=== PATIENT | male | born 1960 | race African-American/Black ===

== ENCOUNTER 2018-11-17 09:14 | Day surgery (SDC) | payer MEDICAID ==
[2018-11-17] MEDS ORDERED: fentaNYL 0.05 MG/ML VIAL ONE (13:21)
[2018-11-17] MEDS ORDERED: LIDOCAINE 2% 100 MG/5 ML UJET TP ONE (13:21)
[2018-11-17] MEDS ORDERED: fentaNYL 0.05 MG/ML VIAL IVP ONE (13:40)
== END 2018-11-17 14:04 | disposition home or self-care (01) ==
LOC: MOR 09:14 → MMU 09:15 → MOR 14:04
PROVIDERS: ATTEND Internal Medicine Gastroenterology
DX: Z12.11 Encounter for screening for malignant neoplasm of colon (principal); K57.30 Diverticulosis of large intestine without perforation or abscess without bleeding; K64.8 Other hemorrhoids
CPT/HCPCS: 45378; J3010